=== PATIENT | female | born 1965 | race African-American/Black ===

== ENCOUNTER 2017-04-05 15:54 | Inpatient (IN) | payer MEDICAID ==
[~2017-04-05] VITALS: Ht 162.6 cm; Wt 59.0 kg
[~2017-04-05 15:54] MED LIST: GABA-531 PO; HUMULIN N; HUMULIN R; MULT-1146 PO; NAPR-681 PO; TRAM50TA3 PO
[2017-04-05] MEDS ORDERED: PIPERACILLIN/TAZ 3.375G PREMIX 50 ML IV ONE (18:15)
[2017-04-05] MEDS ORDERED: MORPHINE SULFATE 4 MG/ML CPJ (NOT FOR IM USE) IV ONE ×2 (18:15→21:45)
[2017-04-05 19:31] LABS: CHLORIDE 109 mEq/L (98-107)
[2017-04-05 19:35] LABS: BASOPHILS % 0.2 % (0.0-2.0); EOSINOPHILS % 0.9 % (0.0-5.0); HEMATOCRIT. 31.1 % (36.0-48.0); HEMOGLOBIN. 10.6 g/dL (12.0-16.0); LYMPHOCYTES % 11.4 % (20.0-50.0); MEAN CORPUSCULAR HEMOGLOBIN 31.9 pg (28.0-32.0); MEAN CORPUSCULAR VOLUME 93.7 fL (81.0-99.0); MEAN PLATELET VOLUME 8.8 fl (7.4-10.4); MONOCYTES % 10.3 % (2.0-8.0); NEUTROPHILS % 77.2 % (40.0-76.0); PLATELET 224 x1000/uL (130-400); RED BLOOD CELL COUNT 3.32 mill/uL (4.2-5.4); RED CELL DISTRIBUTION WIDTH 13.9 % (11.6-14.6)
[2017-04-05 19:36] LABS: CARBON DIOXIDE 27 mEq/L (21-32)
[2017-04-05] MEDS ORDERED: MAGNESIUM/ALUMINUM HYDROXIDE/SIMETHICONE 30ML UDC PO PRN (21:30)
[2017-04-05] MEDS ORDERED: CLONIDINE 0.1MG TABLET PO PRN (21:30)
[2017-04-05] MEDS ORDERED: IPRATROPIUM/ALBUTEROL 0.5-3(2.5)MG/3ML NEB INH PRN (21:30)
[2017-04-05] MEDS ORDERED: ACETAMINOPHEN 325MG TABLET PO PRN (21:30)
[2017-04-05] MEDS ORDERED: ONDANSETRON HCL 4MG/2ML VIAL IV PRN (21:30)
[2017-04-05] MEDS ORDERED: KETOROLAC 30MG/ML VIAL IV ONE (21:45)
[2017-04-05] MEDS ORDERED: LIDOCAINE HCL 1% 20ML VIAL (Pyxis) INJ INFIL ONE (21:45)
[2017-04-05 21:59] LABS: CREATINE KINASE 110 IU/L (26-192); CREATINE KINASE MB FRACTION < 0.5 ng/mL (0.5-3.6); TROPONIN I < 0.02 ng/mL (0.00-0.04)
[2017-04-05] MEDS ORDERED: MUPIROCIN 2% OINT 22GM TOP SCH (22:00)
[2017-04-05] MEDS ORDERED: VANCOMYCIN 1250MG in DEXTROSE 5% WATER 250ML IV SCH (23:00)
[2017-04-05 23:31] LABS: CARBON DIOXIDE 26 mEq/L (21-32); CHLORIDE 106 mEq/L (98-107)
[2017-04-06] MEDS: HYDROCODONE/ACETAMINOPHEN 5/325MG TABLET PO PRN ×3 (01:19→17:31)
[2017-04-06] MEDS: PIPERACILLIN/TAZ 3.375G PREMIX 50 ML IV SCH ×3 (03:14→18:47)
[2017-04-06] MEDS ORDERED: HYDR-523 PO (05:51)
[2017-04-06 06:13] LABS: BASOPHILS % 0.3 % (0.0-2.0); EOSINOPHILS % 1.9 % (0.0-5.0); HEMATOCRIT. 31.6 % (36.0-48.0); HEMOGLOBIN. 10.7 g/dL (12.0-16.0); LYMPHOCYTES % 14.5 % (20.0-50.0); MEAN PLATELET VOLUME 9.3 fl (7.4-10.4); MONOCYTES % 11.1 % (2.0-8.0); NEUTROPHILS % 72.2 % (40.0-76.0); PLATELET 244 x1000/uL (130-400); RED BLOOD CELL COUNT 3.36 mill/uL (4.2-5.4); RED CELL DISTRIBUTION WIDTH 13.8 % (11.6-14.6)
[2017-04-06 06:50] LABS: CREATINE KINASE 76 IU/L (26-192); CREATINE KINASE MB FRACTION < 0.5 ng/mL (0.5-3.6); HDL CHOLESTEROL 83 mg/dL (40-59); LDL CHOLESTEROL 56 mg/dL (5-100)
[2017-04-06] MEDS: BLOOD SUGAR DIAGNOSTIC STRIP TEST SCH ×4 (08:49→21:33)
[2017-04-06] MEDS: INSULIN LISPRO 100 UNITS/ML SUBCUT SCH ×4 (08:50→21:00)
[2017-04-06] MEDS: ENOXAPARIN 40MG/0.4ML SYR SUBCUT SCH (08:55)
[2017-04-06] MEDS ORDERED: DEXTROSE 50% WATER 50ML SYRINGE IV PRN (09:00)
[2017-04-06] MEDS: VANCOMYCIN 1 G PREMIX 200 ML IV SCH ×2 (12:10→21:33)
[2017-04-06] MEDS ORDERED: PIPERACILLIN/TAZ 3.375G PREMIX 50 ML IV SCH (16:45)
[2017-04-06] MEDS ORDERED: HALOPERIDOL LACTATE 5MG/ML VIAL IM PRN (20:45)
[2017-04-06] MEDS: SILVER SULFADIAZINE 1% CREAM 25GM TOP SCH (21:33)
[2017-04-07] MEDS: PIPERACILLIN/TAZ 3.375G PREMIX 50 ML IV SCH ×5 (00:15→23:18)
[2017-04-07] MEDS: HYDROCODONE/ACETAMINOPHEN 5/325MG TABLET PO PRN ×4 (00:31→23:21)
[2017-04-07 05:43] LABS: CLARITY URINE CLEAR (CLEAR); COLOR URINE YELLOW (YELLOW); KETONES URINE NEGATIVE (NEGATIVE); LEUKOCYTE ESTERASE URINE NEGATIVE (NEGATIVE); NITRITE URINE NEGATIVE (NEGATIVE); OCCULT BLOOD URINE 1+ (NEGATIVE); PH URINE 5.5 (4.5-8.0); PROTEIN URINE TRACE (NEGATIVE); SPECIFIC GRAVITY URINE 1.013 (1.005-1.030); UROBILINOGEN URINE 0.2 E.U./dL (0.2-1.0)
[2017-04-07 06:09] LABS: BASOPHILS % 0.5 % (0.0-2.0); EOSINOPHILS % 3.8 % (0.0-5.0); HEMATOCRIT. 29.1 % (36.0-48.0); HEMOGLOBIN. 9.9 g/dL (12.0-16.0); LYMPHOCYTES % 18.8 % (20.0-50.0); MEAN CORPUSCULAR HEMOGLOBIN 31.9 pg (28.0-32.0); MEAN CORPUSCULAR VOLUME 93.4 fL (81.0-99.0); MEAN PLATELET VOLUME 8.4 fl (7.4-10.4); MONOCYTES % 14.9 % (2.0-8.0); PLATELET 243 x1000/uL (130-400); RED BLOOD CELL COUNT 3.11 mill/uL (4.2-5.4); RED CELL DISTRIBUTION WIDTH 13.8 % (11.6-14.6)
[2017-04-07 06:34] LABS: *AMPHETAMINES SCREEN URINE NEGATIVE (NEGATIVE); *BARBITURATES SCREEN URINE NEGATIVE (NEGATIVE); *BENZODIAZEPINES SCREEN URINE NEGATIVE (NEGATIVE); *COCAINE SCREEN URINE NEGATIVE (NEGATIVE); CANNABINOID URINE SCREEN NEGATIVE (NEGATIVE); METHADONE URINE SCREEN NEGATIVE (NEGATIVE); OPIATES URINE SCREEN PRESUMTIVE POSITIVE (NEGATIVE); PHENCYCLIDINE URINE SCREEN NEGATIVE (NEGATIVE)
[2017-04-07] MEDS: BLOOD SUGAR DIAGNOSTIC STRIP TEST SCH ×4 (06:48→21:22)
[2017-04-07] MEDS: INSULIN LISPRO 100 UNITS/ML SUBCUT SCH ×4 (07:08→21:22)
[2017-04-07] MEDS: VANCOMYCIN 1 G PREMIX 200 ML IV SCH (08:36)
[2017-04-07] MEDS: ENOXAPARIN 40MG/0.4ML SYR SUBCUT SCH (08:37)
[2017-04-07] MEDS: SILVER SULFADIAZINE 1% CREAM 25GM TOP SCH ×2 (08:38→21:22)
[2017-04-07] MEDS ORDERED: ZOLPIDEM TARTRATE 5MG TABLET PO PRN (22:00)
[2017-04-08] MEDS: BLOOD SUGAR DIAGNOSTIC STRIP TEST SCH ×4 (06:26→21:00)
[2017-04-08] MEDS: PIPERACILLIN/TAZ 3.375G PREMIX 50 ML IV SCH ×3 (06:33→17:41)
[2017-04-08] MEDS: INSULIN LISPRO 100 UNITS/ML SUBCUT SCH ×4 (07:50→22:18)
[2017-04-08] MEDS: ENOXAPARIN 40MG/0.4ML SYR SUBCUT SCH (09:16)
[2017-04-08] MEDS: HYDROCODONE/ACETAMINOPHEN 5/325MG TABLET PO PRN ×2 (14:37→23:33)
[2017-04-08] MEDS: SILVER SULFADIAZINE 1% CREAM 25GM TOP SCH ×2 (14:37→22:19)
[2017-04-08] MEDS: VANCOMYCIN 500 MG PREMIX 100 ML IV SCH (17:48)
[2017-04-09] MEDS: PIPERACILLIN/TAZ 3.375G PREMIX 50 ML IV SCH ×4 (00:58→17:02)
[2017-04-09] MEDS: VANCOMYCIN 500 MG PREMIX 100 ML IV SCH (05:25)
[2017-04-09 05:55] LABS: VANCOMYCIN TROUGH 23.4 ug/mL (5.0-10.0)
[2017-04-09] MEDS: BLOOD SUGAR DIAGNOSTIC STRIP TEST SCH ×4 (06:33→21:00)
[2017-04-09] MEDS: INSULIN LISPRO 100 UNITS/ML SUBCUT SCH ×4 (07:48→22:05)
[2017-04-09] MEDS: ENOXAPARIN 40MG/0.4ML SYR SUBCUT SCH (08:41)
[2017-04-09] MEDS ORDERED: SILVER SULFADIAZINE 1% CREAM 25GM TOP SCH (21:00)
[2017-04-09] MEDS ORDERED: SILVER SULFADIAZINE 1% CREAM 50GM TOP SCH (22:30)
[2017-04-10] MEDS: PIPERACILLIN/TAZ 3.375G PREMIX 50 ML IV SCH ×3 (00:18→11:51)
[2017-04-10] MEDS: BLOOD SUGAR DIAGNOSTIC STRIP TEST SCH ×2 (06:31→11:57)
[2017-04-10] MEDS: INSULIN LISPRO 100 UNITS/ML SUBCUT SCH ×2 (07:43→14:08)
[2017-04-10] MEDS: ENOXAPARIN 40MG/0.4ML SYR SUBCUT SCH (08:14)
[2017-04-10] MEDS ORDERED: VANCOMYCIN 750 MG PREMIX 150 ML IV SCH (09:00)
[2017-04-10 14:42] VITALS: BP 126/81
== END 2017-04-10 16:11 | disposition home health service (06) | DRG 710 ==
LOC: ER 15:54 → 6WST 21:25 → ENRESERV 22:35
PROVIDERS: ADMIT Internal Medicine; ATTEND Internal Medicine
PROC: 0H9NXZZ Drainage of Left Foot Skin, External Approach (ICD-10-PCS; principal; 2017-04-05)
PROC: 0LBW0ZZ Excision of Left Foot Tendon, Open Approach (ICD-10-PCS; 2017-04-06)
DX: A41.9 Sepsis, unspecified organism (principal); E11.42 Type 2 diabetes mellitus with diabetic polyneuropathy; E11.621 Type 2 diabetes mellitus with foot ulcer; L03.116 Cellulitis of left lower limb; L97.529 Non-pressure chronic ulcer of other part of left foot with unspecified severity; R07.89 Other chest pain; L02.612 Cutaneous abscess of left foot; D64.9 Anemia, unspecified; F17.210 Nicotine dependence, cigarettes, uncomplicated; Z79.899 Other long term (current) drug therapy; Z98.891 History of uterine scar from previous surgery
CPT/HCPCS: 10060; 36415; 71010; 73700; 80048; 80061; 80202; 80305; 81001; 82550; 82553; 82962; 83735; 84443; 84484; 85025; 87040; 87070; 87077; 87186; 87205; 93005; 93923; 93970; 96365; 96375; 96376; 99285; C1893; J1650; J1815; J1885; J2270; J2543; J3370; J3490; J7040; J7060